=== PATIENT | female | born 1980 | race Two or more races ===

== ENCOUNTER 2023-05-25 10:31 | Emergency (ER) | payer OTHER ==
[~2023-05-25] VITALS: Ht 165.1 cm; Wt 72.6 kg
[~2023-05-25 10:31] MED LIST: ULTRAM50 MG PO
[2023-05-25] MEDS ORDERED: PRENA1 TRUE CO1 EACH (10:44)
[2023-05-25 11:58] LABS: HEMATOCRIT 36.7 % (36.0-45.00); HEMOGLOBIN 12.5 g/dL (12.0-15.00); MEAN CORPUSCULAR HGB CONC 34.1 g/dl (32.0-36.0); PLATELET COUNT 246 K/uL (150-450); RED BLOOD COUNT 3.91 M/uL (4.00-6.00); RED CELL DISTRIBUTION WIDTH 13.6 % (11.5-14.5)
[2023-05-25 12:49] LABS: CALCIUM 8.3 mg/dL (8.5-10.1); CREATININE SERUM 0.43 mg/dL (0.55-1.02); GFR 161.81; POTASSIUM 3.86 mEq/L (3.5-5.1)
== END 2023-05-25 14:17 | disposition home or self-care (01) ==
LOC: ER 10:31
DX: R04.0 Epistaxis (principal); Z3A.28 28 weeks gestation of pregnancy

== ENCOUNTER 2023-06-10 10:49 | Outpatient (CLI) | payer OTHER ==
[~2023-06-10 10:49] MED LIST changes: +PRENA1 TRUE CO1 EACH
== END 2023-06-10 11:54 | disposition home or self-care (01) ==
LOC: NST 10:49
PROVIDERS: ATTEND Obstetrics & Gynecology
DX: Z34.83 Encounter for supervision of other normal pregnancy, third trimester (principal)